=== PATIENT | male | born 1980 | race Two or more races ===

== ENCOUNTER → 2024-08-26 | Outpatient (CLI) | payer MEDICAID, SELFPAY ==
--- NOTE | 2024-08-26 16:07 | XR_ITS ---
EXAMINATION: Ankle, right 3 views . Technique: Ankle AP, oblique, lateral 3 views Date and time of exam: August 26, 2024 1610 hours INDICATIONS: Patient fell today with into the ankle, ankle pain. FINDINGS: Lateral malleolar soft tissue swelling. No ankle fracture or dislocation. IMPRESSION: No ankle fracture or dislocation.
== END | disposition home or self-care (01) ==
LOC: CDIM 15:56
DX: M25.571 Pain in right ankle and joints of right foot (principal)
CPT/HCPCS: 73610